=== PATIENT | male | born 1990 | race Asian ===

== ENCOUNTER 2024-01-16 00:30 | Emergency (ER) | payer BC ==
[~2024-01-16] VITALS: Ht 162.6 cm; Wt 70.0 kg
[2024-01-16 00:50] VITALS: O2SAT 98
[2024-01-16] MEDS ORDERED: HYDR-4001 MT (01:15)
[2024-01-16] MEDS ORDERED: HYDROCODONE/ACETAMINOPHEN 5/325MG TABLET PO ONE (01:15)
[2024-01-16] MEDS ORDERED: IBUP-2029 MT (01:18)
[2024-01-16 03:05] VITALS: BP 128/71; PULSE 73; RESP 18; TEMP 97.3
== END 2024-01-16 02:57 | disposition home or self-care (01) ==
LOC: ER 00:30
DX: M79.672 Pain in left foot (principal)
CPT/HCPCS: 73610; 73630; 99284; Z7610